=== PATIENT | female | born 1955 | race Caucasian/White ===

== ENCOUNTER 2016-08-05 07:55 | Emergency (ER) | payer OTHER ==
[~2016-08-05] VITALS: Ht 162.6 cm; Wt 70.0 kg
[~2016-08-05 07:55] MED LIST: 1-ME1LIQ PO; ALBU8I INH; CIPR500T4 PO; HYDR12.56 PO; LYRI50CA2 PO; METF500 PO; OMEP40CA2 PO; PRAV80 PO
[2016-08-05 07:58] VITALS: BP 170/78; PULSE 99; RESP 20; TEMP 98.5; O2SAT 95
[2016-08-05] MEDS ORDERED: predniSONE 20 MG TAB PO ONE (08:15)
--- NOTE | 2016-08-05 08:18 | PD ---
HPI Chief Complaint: Back/ Neck Pain or Injury Time Seen by Provider: 08:12 Travel History International Travel<30 days: No Contact w/Intl Traveler<30days: No Traveled to known affect area: No History of Present Illness HPI 60-year-old female presents the emergency department with ongoing and worsening left hip pain. Patient states she had steroid injection to the area approximately one month ago which helped for a small amount of time and then her symptoms worsen. Patient states the pain is localized to the left posterior hip/pelvis, and is worse with bearing weight. She denies numbness, tingling, changes in bowel or bladder, or weakness. Pain is currently out of 10 with weightbearing. Patient is trying ice and heat without improvement. She has no known drug allergies. PFSH Past Medical History Arthritis: Yes Asthma: Yes High Cholesterol: Yes Congestive Heart Failure: Yes COPD: Yes Diabetes: Yes Hypertension: Yes Tubal Ligation: Yes Social History Alcohol Use: Yes (SOCIAL) Tobacco Use: Yes (1PPD) Substance Use: No Allergies-Medications (Allergen,Severity, Reaction): Coded Allergies: No Known Allergies (Unverified , 04/24/15) Reported Meds & Prescriptions Reported Meds & Active Scripts Active Cipro (Ciprofloxacin HCl) 500 Mg Tab 500 Mg PO BID 10 Days Ventolin Hfa (Albuterol Sulfate) 8 Gm Aero 1 Puff INH Q4H PRN * SHAKE WELL BEFORE USE * Reported Hydrochlorothiazide 12.5 Mg Tab 25 Mg PO DAILY Pravastatin Sodium (Pravastatin Sod) 80 Mg Tab 40 Mg PO DAILY Omeprazole 40 mg (Omeprazole) 40 Mg Cap 40 Cap PO DAILY Amlodipine Besylate 10 mg (Amlodipine Besylate) 10 Mg Tab 1 Tab PO DAILY Lyrica (Pregabalin) 50 Mg Cap 50 Mg PO BID Glucophage 500 mg (Metformin HCl) 500 Mg Tab 500 Mg PO DAILY Review of Systems Except as stated in HPI: all other systems reviewed are Neg General / Constitutional: No: Fever Eyes: No: Visual changes HENT: No: Headaches Cardiovascular: No: Chest Pain or Discomfort Respiratory: No: Shortness of Breath Gastrointestinal: No: Abdominal Pain Genitourinary: No: Dysuria Musculoskeletal: Positive: Arthralgias, Limited ROM, Pain Skin: No Rash Neurologic: No: Weakness Psychiatric: No: Depression Endocrine: No: Polydipsia Hematologic/Lymphatic: No: Easy Bruising Physical Exam Narrative GENERAL: Patient appears in mild distress. SKIN: Warm and dry. Normal color. Normal turgor. No rash. HEAD: Atraumatic. Normocephalic. EYES: Pupils equal and round. No scleral icterus. No injection or drainage. ENT: No nasal bleeding or discharge. Mucous membranes pink and moist. Pharynx is clear. Airway is patent. NECK: Trachea midline. Supple and nontender. CARDIOVASCULAR: Regular rate and rhythm. RESPIRATORY: No accessory muscle use. Clear to auscultation. Breath sounds equal bilaterally. MUSCULOSKELETAL: Extremities without clubbing, cyanosis, or edema. No obvious deformities. Patient has negative straight leg raise pain on the left. Patient has increased tenderness with palpation of the left sciatic notch. Left hip maneuvers elicit mild discomfort but no significant pain. There is no weakness in the lower extremities. NEUROLOGICAL: Awake and alert. No obvious cranial nerve deficits. Motor grossly within normal limits. Five out of 5 muscle strength in the arms and legs. Normal speech. PSYCHIATRIC: Appropriate mood and affect; insight and judgment normal. Data Data Last Documented VS Vital Signs Date Time Temp Pulse Resp B/P Pulse Ox O2 Delivery O2 Flow Rate FiO2 08/05/16 07:58 98.5 99 20 170/78 95 Room Air Orders Prednisone (Deltasone) (08/05/16 08:15) MDM Medical Decision Making Medical Screen Exam Complete: Yes Emergency Medical Condition: Yes Differential Diagnosis Lumbago. Sciatica. Sacroiliitis. Narrative Course The patient is felt to have sacroiliitis. Radiographic imaging is not felt warranted as the patient had x-rays previously without significant findings. Patient is given 60 mg prednisone by mouth now. Patient is continued on prednisone 20 mg twice a day 7 days. Patient is given tramadol 50 mg one every 6 hours when necessary pain #20. Patient is use heat and ice to the area and follow-up with her primary care physician as discussed. Patient can return to emergency Department with worsening symptoms if necessary. Diagnosis Primary Impression: Sacroiliitis Referrals: [facility] Primary Care Physician Patient Instructions: General Instructions, Sacroiliitis (ED) Additional Instructions: The patient is felt to have sacroiliitis. Radiographic imaging is not felt warranted as the patient had x-rays previously without significant findings. Patient is given 60 mg prednisone by mouth now. Patient is continued on prednisone 20 mg twice a day 7 days. Patient is given tramadol 50 mg one every 6 hours when necessary pain #20. Patient is use heat and ice to the area and follow-up with her primary care physician as discussed. Patient can return to emergency Department with worsening symptoms if necessary. Med/Other Pt SpecificInfo: Prescription(s) given Disposition: 01 DISCHARGE HOME Condition: Stable Daniel Perez Aug 05, 2016 08:18
[2016-08-05] MEDS ORDERED: METF500T PO (08:20)
[2016-08-05] MEDS ORDERED: LIPI40TA PO (08:20)
[2016-08-05] MEDS ORDERED: HYDR25TA5 PO (08:20)
[2016-08-05] MEDS ORDERED: VENTAER INH (08:20)
[2016-08-05] MEDS ORDERED: PRED20 PO (08:22)
[2016-08-05] MEDS ORDERED: TRAM50TA PO (08:22)
== END 2016-08-05 08:35 | disposition home or self-care (01) ==
LOC: NEPK 07:55
DX: M46.1 Sacroiliitis, not elsewhere classified (principal); E11.9 Type 2 diabetes mellitus without complications; I10 Essential (primary) hypertension; E78.00 Pure hypercholesterolemia, unspecified; F17.200 Nicotine dependence, unspecified, uncomplicated; Z79.84 Long term (current) use of oral hypoglycemic drugs; Z87.39 Personal history of other diseases of the musculoskeletal system and connective tissue; Z87.09 Personal history of other diseases of the respiratory system; Z86.79 Personal history of other diseases of the circulatory system
CPT/HCPCS: 99284; J7512

== ENCOUNTER 2017-05-14 15:19 | Emergency (ER) | payer OTHER ==
[~2017-05-14] VITALS: Ht 172.7 cm; Wt 78.0 kg
[~2017-05-14 15:19] MED LIST changes: -1-ME1LIQ PO; -ALBU8I INH; +BACT800T5 PO; -CIPR500T4 PO; -HYDR12.56 PO; +HYDR25TA5 PO; +LIPI40TA PO; -LYRI50CA2 PO; -METF500 PO; +METF500T PO; -OMEP40CA2 PO; -PRAV80 PO; +PRED20 PO; +TRAM50TA PO; +VENTAER INH
[2017-05-14 15:46] VITALS: BP 132/65; PULSE 85; RESP 20; TEMP 98.5; O2SAT 95
[2017-05-14] MEDS ORDERED: SODIUM CHLORIDE 0.9% FLUSH 10 ML FLUSH IVF PRN (16:30)
--- NOTE | 2017-05-14 16:30 | PD ---
HPI Chief Complaint: Medical Clearance Time Seen by Provider: 16:00 Travel History International Travel<30 days: No Contact w/Intl Traveler<30days: No Traveled to known affect area: No History of Present Illness HPI Patient comes to the emergency department for being reportedly found past drunk in her yard by neighbors. Patient told EMS as well as nursing staff that she laid herself down there she as her yard with soft. However, patient tells me she thinks that she may have passed out. Patient reports that she does drink daily and drinks "a lot" daily. Patient denies any chest pain, shortness breath , numbness or tingling anywhere, fevers, loss change in bowel or bladder, headache, homicidal ideations, or suicidal ideations. Patient states that she has been having right hip pain for a month after a mechanical fall, but has never been evaluated. Pain is worse with walking. Denies any radiation of pain. Denies anything making symptoms better. Severity mild. PFSH Past Medical History Arthritis: Yes Asthma: Yes High Cholesterol: Yes Congestive Heart Failure: Yes COPD: Yes Diabetes: Yes Patient Takes Glucophage: Yes (Metformin, unknown when last taken) Diminished Hearing: No GERD: Yes Hypertension: Yes Respiratory: Yes (Nodules on lungs, unknown if cancerous) Myocardial Infarction: Yes (01/2017) Tetanus Vaccination: Unknown Menopausal: Yes Tubal Ligation: Yes Social History Alcohol Use: Yes (Several beers daily) Tobacco Use: Yes (1PPD) Substance Use: No Allergies-Medications (Allergen,Severity, Reaction): Coded Allergies: No Known Allergies (Unverified Adverse Reaction, Unknown, 05/14/17) Reported Meds & Prescriptions Reported Meds & Active Scripts Active Bactrim DS (Sulfamethoxazole-Trimethoprim) 800-160 Mg Tab 1 Tab PO BID Tramadol (Tramadol HCl) 50 Mg Tab 50 Mg PO Q6H PRN Prednisone 20 Mg Tab 20 Mg PO BID Reported Ventolin Hfa 18 GM Inh (Albuterol Sulfate) 90 Mcg/Act Aer 1 Puff INH Q4H PRN Metformin (Metformin HCl) 500 Mg Tab 500 Mg PO BIDPC With meals Lipitor (Atorvastatin Calcium) 40 Mg Tab 40 Mg PO HS Hydrochlorothiazide 25 Mg Tab 25 Mg PO DAILY Review of Systems ROS Limitations: Intoxication Except as stated in HPI: all other systems reviewed are Neg Physical Exam Exam Limitations: Intoxication Narrative GENERAL: Well-developed, overly nourished, in no acute distress, and non-ill appearing. Unkempt. SKIN: Focused skin assessment warm and dry. HEAD: Atraumatic. Normocephalic. EYES: Pupils equal and round. EOMI. No scleral icterus. No injection or drainage. ENT: No nasal bleeding or discharge. Mucous membranes pink and moist. NECK: Trachea midline. Supple. No nuclear rigidity. CARDIOVASCULAR: Regular rate and rhythm. No murmur appreciated. Dorsal pulses 2+, intact, and equal bilaterally. Capillary refill less than 2 seconds. RESPIRATORY: No accessory muscle use. No respiratory distress. Clear to auscultation. Breath sounds equal bilaterally. MUSCULOSKELETAL: No obvious deformities. No clubbing. No cyanosis. No edema. Full range of motion. Hip: FROM and equal BL with passive flexion, extension, Abduction, Adduction, and internal/external rotation. Pulses equal BL distal to injury. Capillary refill less than 2 seconds distal to injury and equal BL. FROM distal to injury and equal BL. Strength distal to injury equal BL. NV intact distal to injury and equal BL. Plantar flexion and dorsal flexion equal BL. Dorsal pulses equal BL. Sensation equal BL 1st web space. Patient reports pain with certain movement of right hip. Patient does have a slight limp when she walks favoring her right hip. NEUROLOGICAL: Awake and alert. No obvious cranial nerve deficits. Motor grossly within normal limits. Normal speech. PSYCHIATRIC: Appropriate mood and affect; insight and judgment normal. Data Data Last Documented VS Vital Signs Date Time Temp Pulse Resp B/P (MAP) Pulse Ox O2 Delivery O2 Flow Rate FiO2 05/15/17 04:13 05/14/17 22:15 98.6 88 20 98 Room Air Orders Orders Electrocardiogram (05/14/17 16:21) Basic Metabolic Panel (Bmp) (05/14/17 16:21) Complete Blood Count With Diff (05/14/17 16:21) Magnesium (Mg) (05/14/17 16:21) Ckmb (Isoenzyme) Profile (05/14/17 16:21) Troponin I (05/14/17 16:21) Act Partial Throm Time (Ptt) (05/14/17 16:21) Prothrombin Time / Inr (Pt) (05/14/17 16:21) Urinalysis - C+S If Indicated (05/14/17 16:21) Chest, Single Ap (05/14/17 16:21) Ct Brain W/O Iv Contrast(Rout) (05/14/17 16:21) Ecg Monitoring (05/14/17 16:21) Iv Access Insert/Monitor (05/14/17 16:21) Oximetry (05/14/17 16:21) Sodium Chloride 0.9% Flush (Ns Flush) (05/14/17 16:30) Hip, Uni(Ap&Lat) W Ap Pelvis (05/14/17 ) Drug Screen, Random Urine (05/14/17 16:21) Alcohol (Ethanol) (05/14/17 16:21) Orthostatic Vital Signs (05/14/17 17:46) Labs Laboratory Tests Test 05/14/17 16:27 05/14/17 17:55 Urine Color LIGHT-YELLOW Urine Turbidity CLEAR Urine pH 5.0 Urine Specific Robertson 1.004 Urine Protein NEG mg/dL Urine Glucose (UA) 300 mg/dL Urine Ketones NEG mg/dL Urine Occult Blood NEG Urine Nitrite NEG Urine Bilirubin NEG Urine Urobilinogen LESS THAN 2.0 MG/DL Urine Leukocyte Esterase NEG Urine RBC LESS THAN 1 /hpf Urine WBC LESS THAN 1 /hpf Urine Squamous Epithelial Cells 1 /hpf Urine Bacteria RARE /hpf Urine Mucus FEW /lpf Microscopic Urinalysis Comment CULT NOT INDICATED Urine Opiates Screen NEG Urine Barbiturates Screen NEG Urine Amphetamines Screen NEG Urine Benzodiazepines Screen NEG Urine Cocaine Screen POS Urine Cannabinoids Screen NEG White Blood Count 5.1 TH/MM3 Red Blood Count 4.67 MIL/MM3 Hemoglobin 14.4 GM/DL Hematocrit 42.7 % Mean Corpuscular Volume 91.4 FL Mean Corpuscular Hemoglobin 30.9 PG Mean Corpuscular Hemoglobin Concent 33.8 % Red Cell Distribution Width 17.1 % Platelet Count 348 TH/MM3 Mean Platelet Volume 8.5 FL Neutrophils (%) (Auto) 55.8 % Lymphocytes (%) (Auto) 30.4 % Monocytes (%) (Auto) 9.2 % Eosinophils (%) (Auto) 2.8 % Basophils (%) (Auto) 1.8 % Neutrophils # (Auto) 2.8 TH/MM3 Lymphocytes # (Auto) 1.6 TH/MM3 Monocytes # (Auto) 0.5 TH/MM3 Eosinophils # (Auto) 0.1 TH/MM3 Basophils # (Auto) 0.1 TH/MM3 CBC Comment DIFF FINAL Differential Comment Prothrombin Time 9.4 SEC Prothromb Time International Ratio 0.9 RATIO Activated Partial Thromboplast Time 25.5 SEC Blood Urea Nitrogen 7 MG/DL Creatinine 0.69 MG/DL Random Glucose 194 MG/DL Calcium Level 8.3 MG/DL Magnesium Level 2.2 MG/DL Sodium Level 136 MEQ/L Potassium Level 4.1 MEQ/L Chloride Level 103 MEQ/L Carbon Dioxide Level 18.7 MEQ/L Anion Gap 14 MEQ/L Estimat Glomerular Filtration Rate 86 ML/MIN Total Creatine Kinase 97 U/L Troponin I LESS THAN 0.02 NG/ML Ethyl Alcohol Level 257 MG/DL [facility] Medical Decision Making Medical Screen Exam Complete: Yes Emergency Medical Condition: Yes Interpretation(s) EKG reviewed by Dr. Silva shows sinus rhythm ventricular rate 76. No STEMI. Differential Diagnosis Syncope, alcohol intoxication, fracture, strain, contusion, metabolic disturbance, substance abuse Narrative Course Patient was seen and examined. Initial laboratory radiological studies were ordered. Patient in no obvious distress upon re-evaluation. All pertinent laboratory/Radiology result(s) discussed with patient. Discussed patient with Dr. Silva prior to discharge, who is in agreement plan of care and disposition. Any questions/concerns in reference to patient diagnosis/condition discussed and clarified prior to patient's discharge. Reinforced sheer importance of close follow up with patient's primary physician or primary care clinic. Instructed patient to return to ED immediately, if symptoms return/worsen. Patient showed understanding of above instructions. Further instructions and recommendations were detailed in discharge paperwork. Patient will be monitored in the emergency department until clinically sober and able to ambulate on their own or until a sober responsible adult comes to pick them up. RN is aware of this. Diagnosis Primary Impression: Cocaine abuse Additional Impressions: Alcohol abuse Alcohol intoxication Qualified Codes: F10.920 - Alcohol use, unspecified with intoxication, uncomplicated Hip pain, right [facility] Patient Instructions: Abuse of Alcohol (ED), General Instructions, Hip Pain (ED ), Polysubstance Abuse (ED) Additional Instructions: Follow-up with your primary care physician and/or [facility] for reevaluation and possible detox. Decreased your drinking and stop using cocaine. Return to the emergency department if symptoms get worse. Disposition: 01 DISCHARGE HOME Condition: Stable Lance La D PA May 14, 2017 16:30
--- NOTE | 2017-05-14 16:50 | RADRPT ---
EXAM DATE/TIME: 05/14/2017 16:33 [facility] COMPARISON: No previous studies available for comparison. INDICATIONS : Right buttock pain for for three months. MEDICAL HISTORY : None. SURGICAL HISTORY : None. ENCOUNTER: Initial ACUITY: 3 months PAIN SCORE: 10/10 LOCATION: Right buttock FINDINGS: Examination of the right hip was performed with AP Pelvis. The primary and secondary trabecular aminah bruce of the femoral neck is intact. The hip joint is of normal width without significant sclerosis or bony hypertrophy. The acetabulum is grossly intact. Significant degenerative disease is seen in the lower lumbar spine. CONCLUSION: No acute disease. Lower lumbar degenerative disc disease. Sylvain Brandon MD on May 14, 2017 at 16:47 Board Certified Radiologist. This report was verified electronically.
--- NOTE | 2017-05-14 16:51 | RADRPT ---
EXAM DATE/TIME: 05/14/2017 16:33 [facility] COMPARISON: No previous studies available for comparison. INDICATIONS : Syncopal episode. MEDICAL HISTORY : None. SURGICAL HISTORY : None. ENCOUNTER: Initial ACUITY: 1 day PAIN SCORE: 0/10 LOCATION: Bilateral chest FINDINGS: A single view of the chest demonstrates the lungs to be symmetrically aerated without evidence of mas s, infiltrate or effusion. The cardiomediastinal contours are unremarkable. Right shoulder arthropat hy is noted with superior subluxation of the humeral head in relation to the glenoid fossa. CONCLUSION: 1. No evidence of acute cardiopulmonary process. 2. Right shoulder arthropathy characteristic of a chronic rotator cuff tear Sylvain Brandon MD on May 14, 2017 at 16:48 Board Certified Radiologist. This report was verified electronically.
--- NOTE | 2017-05-14 17:46 | RADRPT ---
EXAM DATE/TIME: 05/14/2017 17:37 [facility] COMPARISON: No previous studies available for comparison. INDICATIONS : Found Laying in her yard, ETOH RADIATION DOSE: 47.08 CTDIvol (mGy) MEDICAL HISTORY : Hypertension. Cardiovascular disease Diabetes SURGICAL HISTORY : None. ENCOUNTER: Initial ACUITY: 1 day PAIN SCALE: 0/10 LOCATION: cranial TECHNIQUE: Multiple contiguous axial images were obtained of the head. Using automated exposure control and adj ustment of the mA and/or kV according to patient size, radiation dose was kept as low as reasonably a chievable to obtain optimal diagnostic quality images. DICOM format image data is available electro nically for review and comparison. FINDINGS: CEREBRUM: The ventricles are normal for age. No evidence of midline shift, mass lesion, hemorrhage or acute in farction. No extra-axial fluid collections are seen. POSTERIOR FOSSA: The cerebellum and brainstem are intact. The 4th ventricle is midline. The cerebellopontine angle i s unremarkable. EXTRACRANIAL: The visualized portion of the orbits is intact. SKULL: The calvaria is intact. No evidence of skull fracture. CONCLUSION: No acute disease. No evidence of acute infarct, hemorrhage, mass or edema. Sylvain Brandon MD on May 14, 2017 at 17:43 Board Certified Radiologist. This report was verified electronically.
[2017-05-14 18:06] LABS: AUTOMATED NEUTROPHIL # 2.8 TH/MM3 (1.8-7.7); BASOPHIL # 0.1 TH/MM3 (0-0.2); BASOPHIL % 1.8 % (0.0-2.0); EOSINOPHIL # 0.1 TH/MM3 (0-0.4); EOSINOPHIL % 2.8 % (0.0-4.0); HEMATOCRIT 42.7 % (35.0-46.0); HEMOGLOBIN 14.4 GM/DL (11.6-15.3); LYMPH % 30.4 % (9.0-44.0); LYMPHOCYTE # 1.6 TH/MM3 (1.0-4.8); MEAN CELL VOLUME 91.4 FL (80.0-100.0); MEAN CORPUSCULAR HEMOGLOBIN 30.9 PG (27.0-34.0); MEAN CORPUSCULAR HGB CONC 33.8 % (32.0-36.0); MEAN PLATELET VOLUME 8.5 FL (7.0-11.0); MONO % 9.2 % (0.0-8.0); MONOCYTE # 0.5 TH/MM3 (0-0.9); NEUT % 55.8 % (16.0-70.0); PLATELET COUNT 348 TH/MM3 (150-450); RED BLOOD COUNT 4.67 MIL/MM3 (4.00-5.30); RED CELL DISTRIBUTION WIDTH 17.1 % (11.6-17.2); WHITE BLOOD COUNT 5.1 TH/MM3 (4.0-11.0)
[2017-05-14 18:12] LABS: BACTERIA, URINE RARE /hpf; BILIRUBIN, URINE NEG (NEG); BLOOD, URINE NEG (NEG); GLUCOSE,URINE 300 mg/dL (NEG); KETONE, URINE NEG (NEG); MUCUS URINE FEW /lpf (OCC); NITRITE,URINE NEG (NEG); SQUAMOUS EPITHELIAL CELL URINE 1 /hpf (0-5); URINE COLOR LIGHT-YELLOW (YELLW/STRAW); URINE LEUKOCYTE ESTERASE NEG (NEG)
[2017-05-14 18:18] LABS: INTERNATIONAL NORMALIZED RATIO 0.9 RATIO; PROTHROMBIN TIME - PATIENT 9.4 SEC (9.8-11.6)
[2017-05-14 18:45] LABS: BICARBONATE 18.7 MEQ/L (21.0-32.0); BLOOD UREA NITROGEN 7 MG/DL (7-18); CALCIUM 8.3 MG/DL (8.5-10.1); CHLORIDE 103 MEQ/L (98-107); CREATININE 0.69 MG/DL (0.50-1.00); GLOMERULAR FILTRATION RATE 86 ML/MIN (>89); GLUCOSE,RANDOM 194 MG/DL (74-106); MAGNESIUM 2.2 MG/DL (1.5-2.5); SODIUM (NA) 136 MEQ/L (136-145); TROPONIN I LESS THAN 0.02 NG/ML (0.02-0.05)
[2017-05-14 19:00] VITALS: BP_SYST 132; BP_SYST 134; BP_SYST 136; BP_DIAS 72; RESP 20
[2017-05-14 19:05] VITALS: RESP 20
[2017-05-14 22:15] VITALS: BP 128/76; PULSE 88; RESP 20; TEMP 98.6; O2SAT 98
--- NOTE | 2017-05-15 08:58 | EKG ---
Date Performed: 05/14/2017 Time Performed: 16:43:17 PTAGE: 61 years EKG: Sinus rhythm POSSIBLE LEFT ATRIAL ENLARGEMENT NONSPECIFIC T-WAVE ABNORMALITY ABNORMAL ECG PREVIOUS TRACING : 07/06/2014 12.30 Since the previous tracing, no significant change noted DOCTOR: Rosales Estrada Interpretating Date/Time 05/15/2017 08:57:52
== END 2017-05-15 04:13 | disposition home or self-care (01) ==
LOC: NEPE 15:19
DX: F14.10 Cocaine abuse, uncomplicated (principal); F10.129 Alcohol abuse with intoxication, unspecified; Y90.8 Blood alcohol level of 240 mg/100 ml or more; M25.551 Pain in right hip; R94.31 Abnormal electrocardiogram [ECG] [EKG]; I11.0 Hypertensive heart disease with heart failure; I50.9 Heart failure, unspecified; E11.9 Type 2 diabetes mellitus without complications; F17.200 Nicotine dependence, unspecified, uncomplicated
CPT/HCPCS: 70450; 71045; 73502; 80048; 80307; 81001; 82550; 83735; 84484; 85025; 85610; 85730; 93005; 99285